=== PATIENT | male | born 1960 | race Caucasian/White ===

== ENCOUNTER → 2017-01-07 | Outpatient (CLI) | payer OTHER | END | disposition home or self-care (01) | LOC: LABMAIN 07:58 | PROVIDERS: ATTEND Psychiatry & Neurology Neurology | DX: G40.909 Epilepsy, unspecified, not intractable, without status epilepticus (principal) | CPT/HCPCS: 36415; 80185 ==

== ENCOUNTER 2018-04-26 00:17 | Emergency (ER) | payer BC, OTHER ==
[2018-04-26] MEDS ORDERED: DIAZEPAM 5 MG/ML 2 ML INJ IVP STA (01:19)
--- NOTE | 2018-04-26 01:25 | ED ---
General Adult HPI - General Chief complaint: Chest Pain Stated complaint: Chest Pain/Seizure Time Seen by Provider: 04/26/18 01:12 Source: patient, EMS Limitations: no limitations - History of Present Illness Initial comments: This patient's 57-year-old man with history of seizure disorder, who presents after having seizure tonight. The patient states that he was at home on the couch watching television, and then he remembers becoming alert here. The patient's relates that he had a generalized tonic-clonic seizure. It seemed to last for a number of minutes. He did not fall or have any injury. The patient does complain that it feels like the muscles of his upper abdomen and of his mid back are sore however. He denies any bony type of pain. The patient feels he is back to his baseline and the family states she does seem that way as well. The patient relates that he takes Dilantin, doesn't think that he has missed any doses however he acknowledges this is possible. -: minutes(s) Location: abdomen Radiation: back Quality: aching Consistency: constant Improves with: none Worsens with: movement Associated Symptoms: denies other symptoms Treatments Prior to Arrival: none - Related Data Home Medications Medication Instructions Recorded Confirmed Phenytoin Sodium Extended 200 mg PO BID 11/11/13 06/26/15 [Dilantin] Allergies Allergy/AdvReac Type Severity Reaction Status Date / Time No Known Allergies Allergy Verified 06/26/15 20:10 Review of Systems ROS Statement: Those systems with pertinent positive or pertinent negative responses have been documented in the HPI. ROS Other: All systems not noted in ROS Statement are negative. Constitutional: Denies: fever, chills, weakness Respiratory: Denies: cough, dyspnea Cardiovascular: Denies: chest pain, edema, syncope Gastrointestinal: Denies: abdominal pain, nausea, vomiting Musculoskeletal: Reports: as per HPI, back pain, myalgia Skin: Denies: rash Neurological: Denies: headache, weakness, numbness Past Medical History Past Medical History: Seizure Disorder History of Any Multi-Drug Resistant Organisms: MRSA Date of last positivie culture/infection: 2011 MDRO Source:: axillary (bilateral) Past Surgical History: No Surgical Hx Reported Additional Past Surgical History / Comment(s): colonoscopy with polyp removal, surgery to correct deviated septum. Past Psychological History: No Psychological Hx Reported Smoking Status: Never smoker Past Alcohol Use History: None Reported Past Drug Use History: None Reported General Exam Limitations: no limitations General appearance: alert, in no apparent distress Head exam: Present: atraumatic, normocephalic Eye exam: Present: normal appearance. Absent: scleral icterus, conjunctival injection ENT exam: Present: normal oropharynx Neck exam: Present: normal inspection, full ROM. Absent: tenderness Respiratory exam: Present: normal lung sounds bilaterally. Absent: respiratory distress, wheezes, rales, rhonchi, stridor, chest wall tenderness Cardiovascular Exam: Present: regular rate, normal rhythm, normal heart sounds. Absent: systolic murmur, diastolic murmur, rubs, gallop GI/Abdominal exam: Present: soft. Absent: distended, tenderness, guarding, rebound, mass Extremities exam: Present: normal inspection, normal capillary refill. Absent: pedal edema, calf tenderness Back exam: Present: normal inspection, full ROM, muscle spasm, paraspinal tenderness. Absent: CVA tenderness (R), CVA tenderness (L), vertebral tenderness Neurological exam: Present: alert, oriented X3, CN II-XII intact. Absent: motor sensory deficit Skin exam: Present: warm, dry, intact, normal color. Absent: rash Course Vital Signs 04/26/18 04/26/18 04/26/18 00:27 02:22 02:30 Temperature 97.6 F Pulse Rate 75 75 72 Respiratory 16 Rate Blood Pressure 145/95 130/80 O2 Sat by Pulse 100 Oximetry 04/26/18 04/26/18 04/26/18 02:40 02:50 03:10 Temperature Pulse Rate 75 75 80 Respiratory Rate Blood Pressure 106/66 119/76 97/58 O2 Sat by Pulse 100 100 100 Oximetry 04/26/18 04/26/18 04/26/18 03:20 03:40 03:50 Temperature Pulse Rate 71 69 70 Respiratory Rate Blood Pressure 106/61 92/53 96/54 O2 Sat by Pulse 98 98 97 Oximetry 04/26/18 04/26/18 04:10 04:40 Temperature Pulse Rate 72 64 Respiratory 16 Rate Blood Pressure 92/56 99/64 O2 Sat by Pulse 100 Oximetry EKG Findings - EKG Results: EKG: interpreted by ERMD, WNL, sinus rhythm (Rate approximate 75 bpm), normal axis, normal QRS, normal ST/T, no acute changes Medical Decision Making - Lab Data Result diagrams: 04/26/18 00:30 04/26/18 00:30 Lab Results 04/26/18 04/26/18 04/26/18 Range/Units 00:30 00:30 00:30 WBC 7.6 (3.8-10.6) k/uL RBC 4.74 (4.30-5.90) m/uL Hgb 14.5 (13.0-17.5) gm/dL Hct 45.1 (39.0-53.0) % MCV 95.2 (80.0-100.0) fL MCH 30.6 (25.0-35.0) pg MCHC 32.1 (31.0-37.0) g/dL RDW 12.1 (11.5-15.5) % Plt Count 218 (150-450) k/uL Neutrophils % 57 % Lymphocytes % 31 % Monocytes % 6 % Eosinophils % 2 % Basophils % 1 % Neutrophils # 4.3 (1.3-7.7) k/uL Lymphocytes # 2.4 (1.0-4.8) k/uL Monocytes # 0.5 (0-1.0) k/uL Eosinophils # 0.2 (0-0.7) k/uL Basophils # 0.1 (0-0.2) k/uL Sodium 139 (137-145) mmol/L Potassium 4.4 (3.5-5.1) mmol/L Chloride 105 (98-107) mmol/L Carbon Dioxide 18 L (22-30) mmol/L Anion Gap 16 mmol/L BUN 18 (9-20) mg/dL Creatinine 0.98 (0.66-1.25) mg/dL Est GFR (CKD-EPI)AfAm >90 (>60 ml/min/1.73 sqM) Est GFR (CKD-EPI)NonAf 87 (>60 ml/min/1.73 sqM) Glucose 126 H (74-99) mg/dL Calcium 9.3 (8.4-10.2) mg/dL Total Bilirubin 0.4 (0.2-1.3) mg/dL AST 34 (17-59) U/L ALT 35 (21-72) U/L Alkaline Phosphatase 66 (38-126) U/L Troponin I <0.012 (0.000-0.034) ng/mL Total Protein 7.8 (6.3-8.2) g/dL Albumin 4.9 (3.5-5.0) g/dL Phenytoin <3.0 ug/mL Serum Alcohol <10 mg/dL Disposition Clinical Impression: Seizure disorder Disposition: HOME SELF-CARE Condition: Good Instructions: Recurrent Seizures in Adults (ED) Is patient prescribed a controlled substance at d/c from ED?: No Referrals: Fawad Manning DO [Primary Care Provider] - 1-2 days Ariana Mayer MD [STAFF PHYSICIAN] - 1-2 days
[2018-04-26 01:40] LABS: Basophils # (A) 0.1 k/uL (0-0.2); Basophils % (A) 1 %; Eosinophils # (A) 0.2 k/uL (0-0.7); Eosinophils % (A) 2 %; HCT 45.1 % (39.0-53.0); HGB 14.5 gm/dL (13.0-17.5); Lymphocytes # (A) 2.4 k/uL (1.0-4.8); Lymphocytes % (A) 31 %; MCH 30.6 pg (25.0-35.0); MCHC 32.1 g/dL (31.0-37.0); MCV 95.2 fL (80.0-100.0); Mean Platelet Volume 7.6; Monocytes # (A) 0.5 k/uL (0-1.0); Monocytes % (A) 6 %; Neutrophils # (A) 4.3 k/uL (1.3-7.7); Neutrophils % (A) 57 %; Platelet Count 218 k/uL (150-450); RBC 4.74 m/uL (4.30-5.90); RDW 12.1 % (11.5-15.5); WBC 7.6 k/uL (3.8-10.6)
[2018-04-26 01:44] LABS: ALT 35 U/L (21-72); AST 34 U/L (17-59); Albumin 4.9 g/dL (3.5-5.0); Alcohol <10 mg/dL; Alkaline Phosphatase 66 U/L (38-126); Anion Gap 16 mmol/L; Blood Urea Nitrogen 18 mg/dL (9-20); Calcium 9.3 mg/dL (8.4-10.2); Carbon Dioxide 18 mmol/L (22-30); Chloride 105 mmol/L (98-107); Glucose 126 mg/dL (74-99); Phenytoin (Dilantin) <3.0 ug/mL; Potassium 4.4 mmol/L (3.5-5.1); Sodium 139 mmol/L (137-145); Total Bilirubin 0.4 mg/dL (0.2-1.3); Total Protein 7.8 g/dL (6.3-8.2)
[2018-04-26] MEDS ORDERED: MORPHINE SULFATE 4 MG/ML SYRINGE IV STA (02:30)
[2018-04-26] MEDS ORDERED: PHENYTOIN SODIUM EXTENDED 100 MG CAP PO STA ×2 (03:50→04:58)
[2018-04-26 05:31] VITALS: BP 106/68; PULSE 68; RESP 18; TEMP 97.8
== END 2018-04-26 05:35 | disposition home or self-care (01) ==
LOC: EC 00:17
DX: G40.909 Epilepsy, unspecified, not intractable, without status epilepticus (principal); M62.830 Muscle spasm of back; R10.10 Upper abdominal pain, unspecified; Z79.899 Other long term (current) drug therapy; Z86.14 Personal history of Methicillin resistant Staphylococcus aureus infection
CPT/HCPCS: 36415; 80053; 80185; 84484; 85025; 80320; 99285; 96374; 96375; J2270; J3360

== ENCOUNTER → 2019-02-04 | Outpatient (CLI) | payer BC | END | disposition home or self-care (01) | LOC: LABWHC1 06:45 | PROVIDERS: ATTEND Psychiatry & Neurology Neurology | DX: G40.909 Epilepsy, unspecified, not intractable, without status epilepticus (principal) | CPT/HCPCS: 36415; 80185 ==

== ENCOUNTER → 2019-06-17 | Outpatient (CLI) | payer BC ==
--- NOTE | 2019-06-17 13:03 | XR ---
EXAMINATION TYPE: XR chest 2V DATE OF EXAM: 06/17/2019 COMPARISON: 11/12/2013 HISTORY: Shortness of breath, cough, and asthma TECHNIQUE: Frontal and lateral views of the chest are obtained. FINDINGS: There is no focal air space opacity, pleural effusion, or pneumothorax seen. Pulmonary hyp erinflation with flattening of the diaphragms on the lateral view represents underlying COPD. The car diac silhouette size is within normal limits. The osseous structures are intact. IMPRESSION: No acute cardiopulmonary process. Underlying COPD.
== END ==
LOC: RADXRMAIN 11:44
PROVIDERS: ATTEND Family Medicine
DX: J44.9 Chronic obstructive pulmonary disease, unspecified (principal); Z87.09 Personal history of other diseases of the respiratory system
CPT/HCPCS: 71046

== ENCOUNTER 2019-11-22 12:10 | Emergency (ER) | payer BC ==
--- NOTE | 2019-11-22 12:47 | ED ---
Chest Pain HPI - General Chief Complaint: Chest Pain Stated Complaint: Chest pain Time Seen by Provider: 11/22/19 12:22 Source: patient, family, RN notes reviewed Mode of arrival: ambulatory Limitations: no limitations - History of Present Illness Initial Comments: This is a 51-year-old male history of childhood asthma and a history of a seizure disorder for which she takes Dilantin who presented today with complaints of chest discomfort, described is burning 2-3/10 severity he does state it does increase with palpation. also some dizziness and nausea. It started about one half hours prior to arrival here. No radiation perhaps described as a tightness. No recent cough loose symptoms colds earache sore throat rhinorrhea. He does state he gets dizzy with certain movements. He was somewhat diaphoretic earlier today. He's been having intermittent episodes of this over last several months. Currently is pain-free at this time. No known heart disease that he is aware of. MD Complaint: chest pain - Related Data Home Medications Medication Instructions Recorded Confirmed Phenytoin Sodium Extended 200 mg PO HS 11/11/13 11/22/19 [Dilantin] Multivitamins, Thera [Multivitamin 1 tab PO DAILY 11/22/19 11/22/19 (formulary)] Allergies Allergy/AdvReac Type Severity Reaction Status Date / Time No Known Allergies Allergy Verified 11/22/19 13:32 Review of Systems ROS Statement: Those systems with pertinent positive or pertinent negative responses have been documented in the HPI. ROS Other: All systems not noted in ROS Statement are negative. EKG Findings - EKG Results: EKG: interpreted by THOMAS, sinus rhythm (Sinus rhythm of 60. Interval 124 QRS duration 84 QT since QTC 4:30/4:30 st-t wave changes) Past Medical History Past Medical History: Seizure Disorder History of Any Multi-Drug Resistant Organisms: MRSA Date of last positivie culture/infection: 2011 MDRO Source:: axillary (bilateral) Past Surgical History: No Surgical Hx Reported, Hernia Repair Additional Past Surgical History / Comment(s): colonoscopy with polyp removal, surgery to correct deviated septum, L leg Past Psychological History: No Psychological Hx Reported Smoking Status: Never smoker Past Alcohol Use History: None Reported Past Drug Use History: None Reported General Exam - General Exam Comments Initial Comments: This is a well-developed well-nourished awake alert oriented times 3 male Limitations: no limitations General appearance: alert, in no apparent distress Head exam: Present: atraumatic, normocephalic, normal inspection Eye exam: Present: normal appearance, PERRL, EOMI. Absent: scleral icterus, conjunctival injection, periorbital swelling ENT exam: Present: normal exam, mucous membranes moist Neck exam: Present: normal inspection, full ROM, other (No stridor JVD or bruits). Absent: tenderness, meningismus, lymphadenopathy Respiratory exam: Present: normal lung sounds bilaterally, chest wall tenderness (Tenderness palpation over the left costal sternal margin the mid chest no step- off or crepitation. Palpation does reproduce the patient's pain.). Absent: respiratory distress, wheezes, rales, rhonchi, stridor Cardiovascular Exam: Present: regular rate, normal rhythm, normal heart sounds. Absent: systolic murmur, diastolic murmur, rubs, gallop, clicks GI/Abdominal exam: Present: soft, normal bowel sounds. Absent: distended, te nderness, guarding, rebound, rigid Extremities exam: Present: normal inspection, full ROM, normal capillary refill. Absent: tenderness, pedal edema, joint swelling, calf tenderness Back exam: Present: normal inspection Neurological exam: Present: alert, oriented X3, CN II-XII intact Psychiatric exam: Present: normal affect, normal mood Skin exam: Present: warm, dry, intact, normal color. Absent: rash Course Vital Signs 11/22/19 11/22/19 12:12 13:12 Temperature 98 F Pulse Rate 62 Respiratory 18 16 Rate Blood Pressure 129/83 O2 Sat by Pulse 100 Oximetry Chest Pain MDM - MDM I did review the imaging and report no acute findings. I did have a long discussion with the patient and his regarding findings. Patient is feeling much improved other than he still has reproducible discomfort over the same area as his initial presentation. It is time appears that is musculoskeletal in origin and noncardiac he will be discharged to follow-up with Dr. Manning tomorrow and schedule an outpatient stress test. Additionally he is been taking only 200 mg of his seizure medication at night he is subtherapeutic we did discuss oral loading he is to follow-up with Dr. Mayer regarding this also. Patient has not had any recent seizure activity. Disposition Clinical Impression: Costochondritis, Chest wall syndrome Disposition: HOME SELF-CARE Condition: Good Instructions (If sedation given, give patient instructions): Costochondritis (ED) Additional Instructions: [id number] NSAIDs for the chest pain Is patient prescribed a controlled substance at d/c from ED?: No Referrals: Fawad Manning DO [Primary Care Provider] - 1-2 days
[2019-11-22 13:09] LABS: Basophils # (A) 0.1 k/uL (0-0.2); Basophils % (A) 2 %; Eosinophils # (A) 0.2 k/uL (0-0.7); Eosinophils % (A) 3 %; HCT 44.4 % (39.0-53.0); HGB 14.8 gm/dL (13.0-17.5); Lymphocytes # (A) 1.2 k/uL (1.0-4.8); Lymphocytes % (A) 21 %; MCH 31.5 pg (25.0-35.0); MCHC 33.2 g/dL (31.0-37.0); MCV 94.9 fL (80.0-100.0); Monocytes # (A) 0.4 k/uL (0-1.0); Monocytes % (A) 7 %; Neutrophils # (A) 3.6 k/uL (1.3-7.7); Neutrophils % (A) 65 %; Platelet Count 208 k/uL (150-450); RBC 4.68 m/uL (4.30-5.90); RDW 11.7 % (11.5-15.5); WBC 5.5 k/uL (3.8-10.6)
[2019-11-22 13:16] VITALS: RESP 16
[2019-11-22 13:26] LABS: D-Dimer <0.17 mg/L FEU (<0.60); INR 1.1 (<1.2); Partial Thromboplastin Time 24.5 sec (22.0-30.0); Prothrombin Time 11.2 sec (9.0-12.0)
[2019-11-22 13:33] LABS: ALT 16 U/L (4-49); AST 25 U/L (17-59); African American GFR (CKD) >90 (>60 ml/min/1.73 sqM); Albumin 4.9 g/dL (3.5-5.0); Alkaline Phosphatase 77 U/L (38-126); Anion Gap 8 mmol/L; Blood Urea Nitrogen 18 mg/dL (9-20); Calcium 9.4 mg/dL (8.4-10.2); Carbon Dioxide 27 mmol/L (22-30); Chloride 102 mmol/L (98-107); Creatine Kinase 50 U/L (55-170); Glucose 103 mg/dL (74-99); Magnesium 2.1 mg/dL (1.6-2.3); Non-African American GFR(CKD) >90 (>60 ml/min/1.73 sqM); Phenytoin (Dilantin) <3.0 ug/mL; Potassium 4.2 mmol/L (3.5-5.1); Sodium 137 mmol/L (137-145); Total Bilirubin 0.4 mg/dL (0.2-1.3); Total Protein 7.5 g/dL (6.3-8.2)
--- NOTE | 2019-11-22 13:38 | XR ---
EXAMINATION TYPE: XR chest 2V DATE OF EXAM: 11/22/2019 HISTORY: Chest Pain. REFERENCE: Previous study dated 06/17/2019. FINDINGS: The lungs are overinflated but clear. Pleural space are clear. The heart is not enlarged. IMPRESSION: COPD.
[2019-11-22 15:24] VITALS: BP 122/86; PULSE 60; TEMP 98
== END 2019-11-22 15:22 | disposition home or self-care (01) ==
LOC: EC 12:10
DX: M94.0 Chondrocostal junction syndrome [Tietze] (principal); G40.909 Epilepsy, unspecified, not intractable, without status epilepticus; Z79.899 Other long term (current) drug therapy
CPT/HCPCS: 36415; 71046; 80053; 80185; 82550; 83690; 83735; 83880; 84484; 85025; 85379; 85610; 85730; 93005; 99285

== ENCOUNTER → 2020-05-27 | Outpatient (CLI) | payer BC | END | disposition home or self-care (01) | LOC: LABWHC1 08:46 | PROVIDERS: ATTEND Psychiatry & Neurology Neurology | DX: G40.009 Localization-related (focal) (partial) idiopathic epilepsy and epileptic syndromes with seizures of localized onset, not intractable, without status epilepticus (principal) | CPT/HCPCS: 36415; 80177 ==